=== PATIENT | male | born 2000 | race Caucasian/White ===

== ENCOUNTER 2018-11-18 20:12 | Emergency (ER) | payer OTHER ==
[2018-11-18] MEDS ORDERED: MONT10TA PO (20:21)
[2018-11-18] MEDS ORDERED: DEXM40CP PO (20:21)
[2018-11-18] MEDS ORDERED: FLUT1DIS27 IH (20:21)
[2018-11-18] MEDS ORDERED: CETI10CA8 PO (20:21)
[2018-11-18] MEDS ORDERED: FLUT16SP19 NS (20:21)
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
[2018-11-18] MEDS ORDERED: APAP/HYDROCODONE 325/5 TAB PO ONE (20:45)
--- NOTE | 2018-11-18 21:48 | RADIOLOGY IMAGING REPORT ---
FACILITY: [facility] PATIENT NAME: Gopal Weber : 2000 MR: [id number] V: [id number] EXAM DATE: ORDERING PHYSICIAN: LEV RAPP TECHNOLOGIST: Location: [facility] - [place] Patient: Gopal Weber : 2000 Visit/Account:[id number] Date of Sevice: 11/18/2018 Exam type: ANKLE 3 VIEW MIN LEFT, FOOT 3 VIEW LEFT Indication: Rolled ankle. Comparison: None Available Findings: Subtle fracture at the inferior tip of the medial malleolus. There is mild/moderate adjacent soft tis ephraim swelling. No definitive additional acute fractures identified of the ankle or foot. There is dysm orphic appearance and mild linear lucency of the second and third metatarsal necks, favored related t o remote injury. The ankle mortise is symmetric. Mild ankle effusion. There is no focal soft tissue abnormality. No evidence of radiopaque foreign body. IMPRESSION: 1. Subtle fracture involving the inferior tip of the medial malleolus with mild/moderate adjacent sof t tissue swelling and small ankle effusion. 2. No definitive additional acute fractures identified. There is however dysmorphic appearance and mi ld linear lucency at the second and third metatarsal necks. This is favored related to remote injury. Recommend correlation for point tenderness to exclude acute/subacute fracture. Report Dictated By: Jose Eagle MD at 11/18/2018 9:39 PM Report E-Signed By: Jose Eagle MD at 11/18/2018 9:43 PM WSN:[id number]
--- NOTE | 2018-11-18 21:49 | RADIOLOGY IMAGING REPORT ---
FACILITY: [facility] - [place] PATIENT NAME: Gopal Weber : 2000 MR: [id number] V: [id number] EXAM DATE: ORDERING PHYSICIAN: LEV RAPP TECHNOLOGIST: Location: [facility] - [place] Patient: Gopal Weber : 2000 Visit/Account:[id number] Date of Sevice: 11/18/2018 Exam type: ANKLE 3 VIEW MIN LEFT, FOOT 3 VIEW LEFT Indication: Rolled ankle. Comparison: None Available Findings: Subtle fracture at the inferior tip of the medial malleolus. There is mild/moderate adjacent soft tis ephraim swelling. No definitive additional acute fractures identified of the ankle or foot. There is dysm orphic appearance and mild linear lucency of the second and third metatarsal necks, favored related t o remote injury. The ankle mortise is symmetric. Mild ankle effusion. There is no focal soft tissue abnormality. No evidence of radiopaque foreign body. IMPRESSION: 1. Subtle fracture involving the inferior tip of the medial malleolus with mild/moderate adjacent sof t tissue swelling and small ankle effusion. 2. No definitive additional acute fractures identified. There is however dysmorphic appearance and mi ld linear lucency at the second and third metatarsal necks. This is favored related to remote injury. Recommend correlation for point tenderness to exclude acute/subacute fracture. Report Dictated By: Jose Eagle MD at 11/18/2018 9:39 PM Report E-Signed By: Jose Eagle MD at 11/18/2018 9:43 PM WSN:[id number]
[2018-11-18] MEDS ORDERED: LOR5/325 PO (22:43)
[2018-11-18] MEDS ORDERED: ACET/HYDROC 5/325MG TH ER ONLY 2 TAB/BOTTLE PO ONE (22:45)
== END 2018-11-18 22:54 | disposition home or self-care (01) ==
LOC: ER 20:30
DX: S82.55XA Nondisplaced fracture of medial malleolus of left tibia, initial encounter for closed fracture (principal); W00.0XXA Fall on same level due to ice and snow, initial encounter
CPT/HCPCS: 99284